=== PATIENT | female | born 1935 | race Caucasian/White ===

== ENCOUNTER 2016-10-13 11:00 | Inpatient (IN) | payer MEDICARE, BC ==
[~2016-10-13] VITALS: Ht 156.2 cm; Wt 75.9 kg
--- NOTE | ~2016-10-13 | OR ---
PATIENT'S NAME: BENJAMIN JACKMAN [facility] AGE: 80 Y [address] ROOM: [address] [address] LOCATION: [facility] ADMIT DATE: 10/19/2016 OR/Procedure Report DISCHARGE DATE: FAMILY PHYSICIAN: Timmy Bynum ATTENDING PHYSICIAN: Brady Gauthier SURGEON: Brady Gauthier MD OPTICAL LAB TECHNICIAN: DATE OF PROCEDURE: 10/19/2016 PREOPERATIVE DIAGNOSES: 1. Lumbar degenerative disk disease. 2. Status post lumbar fusion, L4-5. 3. Lumbar herniated disk, L3-4. 4. Lumbar stenosis. 5. Lumbar radiculopathy. POST PROCEDURE DIAGNOSES: 1. Lumbar degenerative disk disease. 2. Status post lumbar fusion, L4-5. 3. Lumbar herniated disk, L3-4. 4. Lumbar stenosis. 5. Lumbar radiculopathy. PROCEDURE PERFORMED: Lumbar laminectomy of L3 with partial diskectomy, L3-4. [employer] ARCHITECT: GABRIELA Templeton. ANESTHESIA: General. ESTIMATED BLOOD LOSS: 200 mL. COMPLICATIONS: Tiny pinhole CSF leak in right lateral recess, repaired with DuraGen and DuraSeal. FINDINGS: Huge herniated disk and severe stenosis, L3-4. OPERATIVE INDICATIONS: The patient is a 80-year-old female, who I have followed for symptomatic large herniated disk with severe stenosis and radiculopathy and neurogenic claudication. The patient failed conservative treatments. She was surgery was offered surgery in the form of decompression operation. The details, risks, benefits, and options were explained. She freely consented to surgery. DESCRIPTION OF PROCEDURE: After the patient was correctly identified and operative site initialed, she was taken back to the operating room and placed PATIENT'S NAME: BENJAMIN JACKMAN [facility] AGE: 80 Y [address] ROOM: [address] [address] LOCATION: [facility] ADMIT DATE: 10/19/2016 OR/Procedure Report DISCHARGE DATE: FAMILY PHYSICIAN: Timmy Bynum ATTENDING PHYSICIAN: Brady Gauthier in a supine position. After general anesthesia was induced, she was placed in the prone position on the Akbar frame with all bony prominences well padded and protected. The back was prepped and draped in the usual sterile fashion. Time-out was taken to verify the patient and procedure. 10 mL of 0.25% Marcaine with epinephrine was injected in line with the incision. A 10 blade was used to make a midline incision over the operative levels. Dissection was taken down through the skin and subcutaneous tissue with electrocautery. The spinous process was encountered, and a subperiosteal dissection was performed bilaterally to expose the posterior elements. Self-retaining retractors were placed in the wound. A Kerrison was placed in the operative site and lateral x-ray verified this at L3-4 just above her fusion. A combination of Kerrison and high-speed bur was used to create laminectomy bilaterally. The medial facets were preserved. Ligamentum flavum was released and resected. It was severely redundant and causing severe stenosis. The facets were undercut bilaterally. The dura was mobilized, which was very difficult due to the adhesion of the calcified enlarged herniated disk centrally. On the right side, there was a tiny pinhole penetration of the lateral edge of the dura from the nerve hook dissection. It was repaired at the end of the case with a small sheet of DuraGen and DuraSeal. The disk was teased free and debrided and removed from both sides. There was a very large lateral recess and foraminal extrusion of disk that was removed. After decompression was complete, the area was irrigated and dried. 80 mg of Depo-Medrol was injected on the left side of the dura ventral near the nerve root. The leak was repaired, and 1 g of vancomycin powder was divided between the superficial and deep tissues. The wound was repaired in layers with #1 Vicryl in the fascia and 0 Vicryl in the subcutaneous tissue. Shira were used to repair the skin. Sterile dressing was applied, and the patient was awakened from anesthesia and taken to the recovery room in stable condition. fast food sales assistant was necessary in this procedure for evacuation of blood during decompression and assistance with mobilization and retraction of the dura to allow removal of the herniated disk in a safe fashion. MD ANGÉLICA TRIANA/bria /[id number] d: 10/19/169 t: 11/07/16 0802, OPERATIVE SUMMARY
--- NOTE | ~2016-10-13 | HP ---
PATIENT'S NAME: BENJAMIN JACKMAN [facility] AGE: 80 Y [address] ROOM: [place] [address] LOCATION: [facility] ADMIT DATE: 10/19/2016 History & Physical DISCHARGE DATE: FAMILY PHYSICIAN: Timmy Bynum ATTENDING PHYSICIAN: Brady Gauthier DATE OF SERVICE: CHIEF COMPLAINT: Low back pain. HISTORY OF PRESENT ILLNESS: The patient is a 80-year-old, , white female, who was admitted to the care of Dr. Brady Gauthier for ongoing low back pain. I am asked to follow her for postoperative pain management and general care. When I see her on the morning of 10/20/2016, she is postoperative day 1, status post laminectomy at L3. Her pain management overnight was okay. She is a little bit groggy. Her is present for the interview. She does not complain of chest pain, or nausea or vomiting. She says she is in no acute pain at this time. CURRENT MEDICATIONS: 1. Norvasc 10. 2. Phenergan 25 as needed. 3. Advair 250, 1 puff b.i.d. 4. Gabapentin 300 mg 4 times a day. 5. Aspirin 81 mg once a day. 6. Hydrochlorothiazide once a day. 7. Ambien 5 mg at night p.r.n. 8. Pataday eye drops. 9. Naprosyn 375 twice a day p.r.n. 10. ProAir inhaler 2 puffs as needed. 11. Synthroid 0.025 mg a day. 12. Ultram 50. ALLERGIES TO MEDICATIONS: Sulfa and penicillin. PAST SURGICAL HISTORY: Previous Operations: 1. Status post appendectomy. 2. Status post breast surgery. SOCIAL HISTORY: Does have a drink of alcohol. Does not smoke. PATIENT'S NAME: BENJAMIN JACKMAN [facility] AGE: 80 Y [address] ROOM: [place] [address] LOCATION: [facility] ADMIT DATE: 10/19/2016 History & Physical DISCHARGE DATE: FAMILY PHYSICIAN: Timmy Bynum ATTENDING PHYSICIAN: Brady Gauthier FAMILY HISTORY: Negative for problems with bleeding disorder or general anesthesia. REVIEW OF SYSTEMS: Positive for obstructive sleep apnea, asthma, essential hypertension, anxiety, low back pain, osteoarthritis, and nondisplaced fracture in the past of her right fibula and close reduction. Also positive for hypothyroidism replacement. PHYSICAL EXAMINATION: Per nurse's notes: GENERAL: She is an elderly female, who appears her stated age. Lying in bed. She is groggy from anesthesia and postoperative pain medicine. She is oriented to person, place, and time. HEENT: Shows pupils react to light. TMs not visualized. Posterior pharynx clear. Mucous murmurs are dry. NECK: Unremarkable. LUNGS: Clear anteriorly. HEART: Shows no murmur, gallop, or rub. BREASTS: Not done. ABDOMEN: Soft without point tenderness or mass. SPINE: I did not check her incision. PELVIC AND RECTAL: Not done. EXTREMITIES: Trace edema. Pulses full throughout. NEUROLOGIC: Grossly intact without lateralizing signs. Cranial nerves intact. Mental status normal postop. ASSESSMENT: 1. Acute on chronic low back pain. 2. Status post laminectomy at L3 on 10/19/2016, Dr. Gauthier. 3. Hypertension, essential. 4. Asthma, mild, intermittent. 5. Allergic conjunctivitis. 6. Hypothyroidism replacement. PLAN: Follow daily. Further treatment as indicated. PEPPER VEGA MD LADIES' HAT TRIMMER/modl PATIENT'S NAME: BENJAMIN JACKMAN [facility] AGE: 80 Y [address] ROOM: [place] [address] LOCATION: [facility] ADMIT DATE: 10/19/2016 History & Physical DISCHARGE DATE: FAMILY PHYSICIAN: Timmy Bynum ATTENDING PHYSICIAN: Brady Gauthier /[id number] D: [id number] T: 714 HISTORY & PHYSICAL
[2016-10-13] MEDS ORDERED: SINGULAIR10 MG PO (11:12)
[2016-10-13] MEDS ORDERED: NORVASC10 MG PO (11:12)
[2016-10-13] MEDS ORDERED: PRAVACHOL40 MG PO (11:13)
[2016-10-13] MEDS ORDERED: NEURONTIN600 MG PO (11:13)
[2016-10-13] MEDS ORDERED: PAXIL CR25 MG PO (11:15)
[2016-10-13] MEDS ORDERED: NAPROSYN375 MG PO (11:16)
[2016-10-13] MEDS ORDERED: AMBIEN5 MG PO (11:16)
[2016-10-13] MEDS ORDERED: SYNTHROID25 MCG PO (11:16)
[2016-10-13] MEDS ORDERED: HYDRODIURIL25 MG PO (11:17)
[2016-10-13] MEDS ORDERED: ULTRAM50 MG PO (11:17)
[2016-10-13] MEDS ORDERED: PATADAY2.5 ML OPHTH (11:18)
[2016-10-13] MEDS ORDERED: ADVAIR 250-501 EACH INH (11:20)
[2016-10-13] MEDS ORDERED: ASPIRIN EC81 MG PO (11:20)
[2016-10-13] MEDS ORDERED: FLONASE 50 MCG/16 GM NOSE (11:21)
[2016-10-13] MEDS ORDERED: THERA-VITE W/ B1 TAB PO (11:22)
[2016-10-13] MEDS ORDERED: CPAP (12:03)
--- NOTE | 2016-10-19 18:47 | NUR ---
Pt here from PACU at 1635. Pt difficult to arouse per report from PACU. On arrival Pt is alert but drowsy. Pt AOx3, but is forgetful. Pt wears cpap at noc, pt is on 4L per NC. Pain is tolerable per patient. Pt is BEDREST and HOB is to be <40 degrees for csf leak. Pt has loose productive cough w/ yellow thick sputum. CSM's intact. Pt has increased pain when raising left leg. Pt's states the pt was on tramadol at home and it was making her confused. Pt instructed on IS and demonstrated with a fair effort. Pt's second half hour due at 1830.
--- NOTE | 2016-10-20 06:54 | NUR ---
Significant Event: Patient is alert and oriented x 3. Forgetful. VSS on CPAP. Was on 2L of O2 before placing CPAP. Wears CPAP at night. Denies any numbness or tingling. Equal strength throughout. Denies any headache. Dressing to back is intact, small bloody drainage noted. On bedrest. To keep HOB less than or equal to 40 degrees. Right forearm IV with D5 1/2 NS with 20 meq KCL at 125 ml/hr. Receiving scheduled IV Tylenol. Dilaudid last given at 0108 and Flexeril last at 2118. Patient is pleasant and cooperative with cares. Follow up:
[2016-10-20] MEDS ORDERED: NORCO 5-325 TA1 EACH PO (16:55)
--- NOTE | 2016-10-20 17:49 | NUR ---
Dismissal Note: Ambulates with SBA and walker. Brace when out of bed. Dressing reinforced with gauze and transparent. Voids without difficulty, BM X2. [place]ier 1 tab prior to dismissal. Sujey education given with dismissal instructions, patient and state understanding. Dismissed to home with .
== END 2016-10-20 17:45 | disposition disaster alternative care site (69) | DRG 519 ==
LOC: G3N 10-19 08:46
PROVIDERS: ADMIT Orthopaedic Surgery Orthopaedic Surgery of the Spine
DX: M51.16 Intervertebral disc disorders with radiculopathy, lumbar region (principal); G97.0 Cerebrospinal fluid leak from spinal puncture; F41.9 Anxiety disorder, unspecified; M51.26 Other intervertebral disc displacement, lumbar region; M48.06 Spinal stenosis, lumbar region; G47.33 Obstructive sleep apnea (adult) (pediatric); Y83.8 Other surgical procedures as the cause of abnormal reaction of the patient, or of later complication, without mention of misadventure at the time of the procedure; Y79.8 Miscellaneous orthopedic devices associated with adverse incidents, not elsewhere classified; I10 Essential (primary) hypertension; J45.909 Unspecified asthma, uncomplicated; H10.10 Acute atopic conjunctivitis, unspecified eye; E03.9 Hypothyroidism, unspecified; Z88.0 Allergy status to penicillin; Z88.2 Allergy status to sulfonamides; Z98.1 Arthrodesis status; Z87.891 Personal history of nicotine dependence; Z79.82 Long term (current) use of aspirin
CPT/HCPCS: C1763; J0131; J0171; J0690; J1040; J1100; J1170; J2001; J2405; J3010; J3370; J3480; J7120